=== PATIENT | male | born 1935 | race Caucasian/White ===

== ENCOUNTER 2019-03-04 11:28 | Day surgery (SDC) | payer OTHER ==
[~2019-03-04 11:28] MED LIST: LIDOCAINE HCL 1% MPF 30 SOL ONE; PROPOFOL 500 MG/50 ML EMU IV ONE
[2019-03-04 13:47] VITALS: O2SAT 97
[2019-03-04 14:07] VITALS: TEMP 97.5
[2019-03-04 14:51] VITALS: BP 169/91; PULSE 75; RESP 20
== END 2019-03-04 14:47 | disposition home or self-care (01) | DRG 392 ==
LOC: SURG 11:28
PROVIDERS: ATTEND Surgery
DX: R19.09 Other intra-abdominal and pelvic swelling, mass and lump (principal); C18.2 Malignant neoplasm of ascending colon; K57.32 Diverticulitis of large intestine without perforation or abscess without bleeding
CPT/HCPCS: J2001; J2704